=== PATIENT | female | born 1980 | race Caucasian/White ===

== ENCOUNTER 2022-07-28 12:58 | Emergency (ER) | payer OTHER ==
[~2022-07-28] VITALS: Ht 172.7 cm; Wt 95.0 kg
[2022-07-28] MEDS ORDERED: ETOMIDATE (2MG/ML) 20ML VIAL IV ONE ×2 (14:00→15:01)
[2022-07-28] MEDS ORDERED: MIDAZOLAM HCL 5 MG/ML-1ML VIAL IV ONE (14:00)
[2022-07-28] MEDS ORDERED: ONDANSETRON HCL 4 MG/2 ML VIAL IV ONE (14:15)
[2022-07-28] MEDS ORDERED: HYDROmorphone HCL 2 MG/ML VL/or syr IV ONE (14:15)
[2022-07-28 15:09] VITALS: BP 168/110
[2022-07-28] MEDS ORDERED: CYCL-837 PO (16:11)
[2022-07-28] MEDS ORDERED: DICL50TA2 PO (16:11)
[2022-07-28] MEDS ORDERED: HYDR-4902 PO (16:11)
== END 2022-07-28 16:25 | disposition home or self-care (01) ==
LOC: ER 12:58
DX: S43.005A Unspecified dislocation of left shoulder joint, initial encounter (principal); Z88.0 Allergy status to penicillin; V86.56XA Driver of dirt bike or motor/cross bike injured in nontraffic accident, initial encounter; Y93.89 Activity, other specified; Y92.89 Other specified places as the place of occurrence of the external cause; Y99.8 Other external cause status
CPT/HCPCS: 23650; 73030; 96374; 96375; 99285; J1170; J2250; J2405; J7030